=== PATIENT | female | born 1970 | race Caucasian/White ===

== ENCOUNTER 2021-11-20 01:27 | Emergency (ER) | payer BC ==
[2021-11-20] MEDS ORDERED: Ketorolac 30 MG/ML SDV IM ONE (02:27)
[2021-11-20] MEDS ORDERED: Cyclobenzaprine 10 MG Tab PO ONE (02:28)
== END 2021-11-20 03:23 | disposition home or self-care (01) ==
LOC: MW.ED 01:27
DX: S39.012A Strain of muscle, fascia and tendon of lower back, initial encounter (principal); X58.XXXA Exposure to other specified factors, initial encounter
CPT/HCPCS: 96372; 99283; A9270; J1885; 99282

== ENCOUNTER 2022-11-05 09:15 | Emergency (ER) | payer BC ==
[2022-11-05] MEDS ORDERED: Ketorolac 30 MG/ML SDV IVPUSH ONE (09:44)
[2022-11-05] MEDS ORDERED: Dexamethasone 10 MG/ML SDV IVPUSH ONE (09:44)
[2022-11-05] MEDS ORDERED: Acetaminophen/oxyCODONE 325-5 MG Tab PO ONE (11:16)
== END 2022-11-05 13:36 | disposition home or self-care (01) ==
LOC: MW.ED 09:15
DX: N83.201 Unspecified ovarian cyst, right side (principal); F17.210 Nicotine dependence, cigarettes, uncomplicated
CPT/HCPCS: 36415; 72131; 74176; 76830; 81001; 84702; 84703; 96374; 96375; 99284; A9270; J1100; J1885; J3360; 99283

== ENCOUNTER 2023-06-05 04:55 | Emergency (ER) | payer BC | END 2023-06-05 05:57 | disposition home or self-care (01) | LOC: MW.ED 04:55 | DX: H60.91 Unspecified otitis externa, right ear (principal) | CPT/HCPCS: 99282; 99283 ==